=== PATIENT | male | born 1975 | race African-American/Black ===

== ENCOUNTER 2017-09-11 13:33 | Emergency (ER) | payer MEDICAID ==
--- NOTE | 2017-09-11 14:13 | EDM.PDOC ---
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, here with s.o., no current c/o - Related Data Allergies Allergy/AdvReac Type Severity Reaction Status Date / Time No Known Allergies Allergy Verified 09/11/17 15:17 Home Meds: Home Meds metFORMIN HCl [Metformin HCl] 500 mg PO DAILY #30 tablet 09/11/17 [Rx] ED ROS GENERAL - Review of Systems Review Of Systems: See Below Constitutional: Reports: No Symptoms HEENT: Reports: No Symptoms Respiratory: Reports: No Symptoms Cardiovascular: Reports: No Symptoms Endocrine: Reports: No Symptoms GI/Abdominal: Reports: No Symptoms : Reports: No Symptoms Musculoskeletal: Reports: No Symptoms Skin: Reports: No Symptoms Neurological: Reports: No Symptoms Psychiatric: Reports: No Symptoms Hematologic/Lymphatic: Reports: No Symptoms Immunologic: Reports: No Symptoms ED EXAM, GENERAL - Physical Exam Exam: See Below Exam Limited By: No Limitations General Appearance: Alert, WD/WN, No Apparent Distress, Other (alert, active, walking, texting on phone, nonill) Neck: Normal Inspection, Supple, Non-Tender, Full Range of Motion Respiratory/Chest: No Respiratory Distress, Lungs Clear, Normal Breath Sounds, No Accessory Muscle Use, Chest Non-Tender Cardiovascular: Regular Rate, Rhythm, No Edema, No Gallop, No Rub, Other (mild dec'd turgor UE, no tenting) GI/Abdominal: Soft, Non-Tender, No Distention, No Mass Back Exam: Normal Inspection, Full Range of Motion, NT Extremities: Normal Inspection, Normal Range of Motion, Non-Tender, No Pedal Edema Neurological: Alert, Oriented, CN II-XII Intact, Normal Cognition, No Motor/ Sensory Deficits Psychiatric: Normal Affect, Normal Mood Skin Exam: Warm, Dry, Intact, Normal Color, No Rash Lymphatic: No Adenopathy Course - Vital Signs Last Recorded V/S: Last Vital Signs Temp 36.5 C 09/11/17 15:09 Pulse 100 09/11/17 15:09 Resp 20 09/11/17 15:09 BP 130/93 H 09/11/17 15:09 Pulse Ox 100 09/11/17 15:09 - Orders/Labs/Meds Orders: Active Orders 24 hr Category Date Time Status Blood Glucose Check, Bedside [RC] ONETIME Care 09/11/17 14:08 Active Labs: Laboratory Tests 09/11/17 09/11/17 Range/Units 14:13 15:20 ABG pH 7.31 L (7.35-7.45) ABG pCO2 26 L (35-45) mmHg ABG pO2 106 (83-108) mmHg ABG HCO3 13 L (22-26) mmol/L ABG O2 Saturation 98 H (96-97) % ABG Base Excess -11.5 L (-2-2) Hasmukh Test Passed O2 Delivery Device Room air POC Glucose 312 H (80-116) mg/dL - Re-Assessments/Exams Free Text/Narrative Re-Assessment/Exam: 09/11/17 15:47 BS improved 312 in 24h based on diet alone, pH 7.31 which is more c/w mild dehydration than mild DKA, suspect DMII, will begin metformin 500 mg daily Departure - Departure Time of Disposition: 15:48 Disposition: Home, Self-Care 01 Condition: Good Clinical Impression: Hyperglycemia due to type 2 diabetes mellitus - Discharge Information Prescriptions: metFORMIN HCl [Metformin HCl] 500 mg PO DAILY #30 tablet Instructions: Type 2 Diabetes Mellitus, Adult, Diabetes Mellitus and Food Referrals: Alfredo Shelton MD [Primary Care Provider] - Forms: ED Department Discharge Additional Instructions: Take metformin 500 mg tab daily in the morning. Take one tab this afternoon and another tab in the morning. Eat a low carbohydrate diet. Your BMI is 29.7, ideal is [address] Shelton tomorrow. Return to ED if you are feeling worse. - My Orders Last 24 Hours: My Active Orders 09/11/17 14:08 Blood Glucose Check, Bedside [RC] ONETIME - Assessment/Plan Last 24 Hours: My Active Orders 09/11/17 14:08 Blood Glucose Check, Bedside [RC] ONETIME
== END 2017-09-11 16:05 | disposition home or self-care (01) ==
LOC: FB.ED 13:33 → EDSTATUS 13:33 → FB.ED 16:05
DX: E11.65 Type 2 diabetes mellitus with hyperglycemia (principal); Z79.84 Long term (current) use of oral hypoglycemic drugs
CPT/HCPCS: 36600; 82803; 82962; 99283

== ENCOUNTER 2017-09-17 11:48 | Emergency (ER) | payer MEDICAID ==
[2017-09-17] MEDS ORDERED: Sodium Chloride 0.9% 10 ML Syringe FLUSH PRN (11:51)
[2017-09-17] MEDS ORDERED: Sodium Chloride 0.9% 3,000 ML IV SCH (12:00)
--- NOTE | 2017-09-17 12:02 | EDM.PDOC ---
ED HPI GENERAL MEDICAL PROBLEM - General Chief Complaint: General Stated Complaint: DECAY Time Seen by Provider: 09/17/17 11:50 Source of Information: Reports: Family, Old Records History Limitations: Reports: Altered Mental Status - History of Present Illness INITIAL COMMENTS - FREE TEXT/NARRATIVE: Kurt returns to [facility] ED with elevated BS "to high to report" this am. He vomited his Metformin dose last pm. This morning, he is lethargic, confused, and combative. There have been symptoms of polyuria, polydipsia, and blurred vision. He saw an folder machine adjuster about 2 mos ago, and was prescribed glasses. He has not seen a PCP for over 5 years. He has a father and a sister diagnosed with DM recently. He was diagnosed with Type II DM last week, and has been taking Metformin 500 mg bid. He has not been checking BSs at home. - Related Data Allergies Allergy/AdvReac Type Severity Reaction Status Date / Time No Known Allergies Allergy Verified 09/11/17 15:17 Home Meds: Home Meds metFORMIN HCl [Metformin HCl] 500 mg PO DAILY #30 tablet 09/11/17 [Rx] Past Medical History - Past Health History Medical/Surgical History: Denies Medical/Surgical History Endocrine/Metabolic History: Reports: Diabetes, Type II - Infectious Disease History Infectious Disease History: Reports: Chicken Pox, Measles Social & Family History - Family History Family Medical History: Noncontributory - Tobacco Use Smoking Status *Q: Current Every Day Smoker Years of Tobacco use: 7 Packs/Tins Daily: 0.2 - Caffeine Use Caffeine Use: Reports: Coffee, Tea - Recreational Drug Use Recreational Drug Use: No ED ROS GENERAL - Review of Systems Review Of Systems: Unable To Obtain (confused at time of interview; carmine provided historical information) ED EXAM GENERAL NO PERIP PULSE - Physical Exam Exam: See Below Exam Limited By: Altered Mental Status General Appearance: Alert, WD/WN, Lethargic Eye Exam: Bilateral Eye: Normal Inspection, PERRL Ears: Normal External Exam Nose: Normal Inspection Throat/Mouth: Normal Inspection, Normal Lips, Normal Oropharynx, No Airway Compromise Head: Normocephalic Neck: Normal Inspection, Supple, Non-Tender, Full Range of Motion Respiratory/Chest: Lungs Clear, Normal Breath Sounds, No Accessory Muscle Use, Other (tachypnea) Cardiovascular: Normal Peripheral Pulses, No Murmur, Tachycardia GI/Abdominal: Normal Bowel Sounds, Soft, Non-Tender, No Organomegaly, No Distention, No Mass Back Exam: Normal Inspection Extremities: Normal Inspection Neurological: No Motor/Sensory Deficits, Confused, Disoriented Psychiatric: Flat Affect Skin Exam: Warm, Dry, Intact Lymphatic: No Adenopathy Course - Vital Signs Text/Narrative:: Following assessment at the [facility] ED, findings confirmed moderately severe DKA. Case was discussed with hospitalist who requested transfer to [facility] ICU in [place], [place]. Case was discussed with Dr Hughes who accepted patient. At time of transfer, Mr Calle was on the 4th and 5th L of NS, received reg Insulin 7 U IV bolus, and an Insulin Drip at .1U/kg/hr was hung. A george catheter was also in place. Last Recorded V/S: Last Vital Signs Temp 34.5 C L 09/17/17 13:27 Pulse 88 09/17/17 13:27 Resp 21 H 09/17/17 13:27 BP 120/66 09/17/17 13:27 Pulse Ox 100 09/17/17 13:27 - Orders/Labs/Meds Orders: Active Orders 24 hr Category Date Time Status Blood Glucose Check, Bedside [RC] BIDMEALS Care 09/17/17 13:27 Active Diabetes Education [RC] Click to Edit Care 09/17/17 13:27 Active Vital Signs [RC] Q1H Care 09/17/17 13:27 Active BASIC METABOLIC PANEL,BMP [CHEM] Q4H Lab 09/17/17 17:30 Ordered BASIC METABOLIC PANEL,BMP [CHEM] Q4H Lab 09/17/17 21:30 Ordered BASIC METABOLIC PANEL,BMP [CHEM] Q4H Lab 09/18/17 01:30 Ordered BASIC METABOLIC PANEL,BMP [CHEM] Q4H Lab 09/18/17 05:30 Ordered BASIC METABOLIC PANEL,BMP [CHEM] Q4H Lab 09/18/17 09:30 Ordered MAGNESIUM [CHEM] Q6H Lab 09/17/17 19:30 Ordered MAGNESIUM [CHEM] Q6H Lab 09/18/17 01:30 Ordered MAGNESIUM [CHEM] Q6H Lab 09/18/17 07:30 Ordered PHOSPHORUS [CHEM] Q6H Lab 09/17/17 19:30 Ordered PHOSPHORUS [CHEM] Q6H Lab 09/18/17 01:30 Ordered PHOSPHORUS [CHEM] Q6H Lab 09/18/17 07:30 Ordered POTASSIUM,K [CHEM] Q2H Lab 09/17/17 15:30 Ordered POTASSIUM,K [CHEM] Q2 Lab 09/17/17 19:30 Ordered POTASSIUM,K [CHEM] Q2 Lab 09/17/17 23:30 Ordered POTASSIUM,K [CHEM] Q2 Lab 09/18/17 01:30 Ordered POTASSIUM,K [CHEM] Q2H Lab 09/18/17 03:30 Ordered POTASSIUM,K [CHEM] Q2 Lab 09/18/17 05:30 Ordered POTASSIUM,K [CHEM] Q2H Lab 09/18/17 07:30 Ordered POTASSIUM,K [CHEM] Q2H Lab 09/18/17 09:30 Ordered POTASSIUM,K [CHEM] Q2 Lab 09/18/17 11:30 Ordered UA W/MICROSCOPIC [URIN] Stat Lab 09/17/17 11:51 Uncollected Insulin Regular, Human [HumuLIN R] 100 unit Med 09/17/17 13:45 Active Sodium Chloride 0.9% [Normal Saline] 99 ml IV TITRATE Sodium Chloride 0.9% [Normal Saline] 1,000 ml Med 09/17/17 13:59 Active IV .BOLUS Sodium Chloride 0.9% [Normal Saline] 1,000 ml Med 09/17/17 14:00 Active IV .BOLUS Sodium Chloride 0.9% [Normal Saline] 3,000 ml Med 09/17/17 12:00 Active IV ASDIRECTED Sodium Chloride 0.9% [Saline Flush] Med 09/17/17 11:51 Active 10 ml FLUSH ASDIRECTED PRN Peripheral IV Insertion Adult [OM.PC] Routine Oth 09/17/17 11:51 Ordered Medication Orders Sodium Chloride (Normal Saline) 3,000 mls @ 999 mls/hr IV ASDIRECTED BETZY Last Admin: 09/17/17 11:55 Dose: 999 mls/hr Insulin Human Regular 100 unit (/ Sodium Chloride) 100 mls @ 8.41 mls/hr IV TITRATE BETZY; 0.1 UNITS/KG/HR PRN Reason: Protocol Last Admin: 09/17/17 13:51 Dose: 0.1 units/kg/hr, 8.41 mls/hr Sodium Chloride (Normal Saline) 1,000 mls @ 999 mls/hr IV .BOLUS ONE Stop: 09/17/17 14:59 Last Admin: 09/17/17 14:02 Dose: 999 mls/hr Sodium Chloride (Normal Saline) 1,000 mls @ 999 mls/hr IV .BOLUS ONE Stop: 09/17/17 15:00 Last Admin: 09/17/17 14:02 Dose: 999 mls/hr Sodium Chloride (Saline Flush) 10 ml FLUSH ASDIRECTED PRN PRN Reason: Keep Vein Open Labs: Laboratory Tests 09/17/17 09/17/17 09/17/17 Range/Units 11:59 12:05 12:05 WBC 30.6 H* (4.5-12.0) X10-3/uL RBC 5.54 (4.30-5.75) x10(6)uL Hgb 15.8 H (11.5-15.5) g/dL Hct 48.6 (30.0-51.3) % MCV 87.8 (80-96) fL MCH 28.5 (27.7-33.6) pg MCHC 32.5 (32.2-35.4) g/dL RDW 11.6 (11.5-15.5) % Plt Count 216 (125-369) X10(3)uL MPV 10.2 (7.4-10.4) fL Add Manual Diff Yes Neutrophils % (Manual) 89 H (46-82) % Band Neutrophils % 3 (0-6) % Lymphocytes % (Manual) 4 L (13-37) % Monocytes % (Manual) 4 (4-12) % Toxic Granulation Few H (NOT SEEN) ABG pH (7.35-7.45) ABG pCO2 (35-45) mmHg ABG pO2 (83-108) mmHg ABG HCO3 (22-26) mmol/L ABG O2 Saturation (96-97) % ABG Base Excess (-2-2) Hasmukh Test O2 Delivery Device Sodium 116 L* (135-145) mmol/L Potassium 6.0 H (3.5-5.3) mmol/L Chloride 78 L* (100-110) mmol/L Carbon Dioxide 7 L* (21-32) mmol/L BUN 107 H* (7-18) mg/dL Creatinine 3.4 H* (0.70-1.30) mg/dL Est Cr Clr Drug Dosing TNP Estimated GFR (MDRD) 24 L (>60) BUN/Creatinine Ratio 31.5 H (9-20) Glucose 1879 H* (80-116) mg/dL POC Glucose > 500 H* D (80-116) mg/dL Calcium 9.3 (8.6-10.2) mg/dL Phosphorus (2.6-4.6) mg/dL Magnesium (1.8-2.5) mg/dL Total Bilirubin 0.6 (0.1-1.3) mg/dL AST 11 (5-25) IU/L ALT 22 (12-36) U/L Alkaline Phosphatase 90 (56-112) IU/L Total Protein 6.1 (6.0-8.0) g/dL Albumin 2.8 L (3.5-5.2) g/dL Globulin 3.3 g/dL Albumin/Globulin Ratio 0.9 09/17/17 09/17/17 09/17/17 Range/Units 12:20 13:39 13:55 WBC (4.5-12.0) X10-3/uL RBC (4.30-5.75) x10(6)uL Hgb (11.5-15.5) g/dL Hct (30.0-51.3) % MCV (80-96) fL MCH (27.7-33.6) pg MCHC (32.2-35.4) g/dL RDW (11.5-15.5) % Plt Count (125-369) X10(3)uL MPV (7.4-10.4) fL Add Manual Diff Neutrophils % (Manual) (46-82) % Band Neutrophils % (0-6) % Lymphocytes % (Manual) (13-37) % Monocytes % (Manual) (4-12) % Toxic Granulation (NOT SEEN) ABG pH 7.17 L* (7.35-7.45) ABG pCO2 13 L* (35-45) mmHg ABG pO2 156 H (83-108) mmHg ABG HCO3 5 L (22-26) mmol/L ABG O2 Saturation 99 H (96-97) % ABG Base Excess -24.2 L (-2-2) Hasmukh Test N/a O2 Delivery Device Nasal cannula Sodium 118 L* (135-145) mmol/L Potassium 5.7 H (3.5-5.3) mmol/L Chloride 80 L* (100-110) mmol/L Carbon Dioxide 8 L* (21-32) mmol/L BUN 103 H (7-18) mg/dL Creatinine 3.2 H* (0.70-1.30) mg/dL Est Cr Clr Drug Dosing TNP Estimated GFR (MDRD) 26 L (>60) BUN/Creatinine Ratio 32.2 H (9-20) Glucose 865 H* D (80-116) mg/dL POC Glucose > 500 H* (80-116) mg/dL Calcium 9.7 (8.6-10.2) mg/dL Phosphorus 7.7 H (2.6-4.6) mg/dL Magnesium 3.0 H* (1.8-2.5) mg/dL Total Bilirubin (0.1-1.3) mg/dL AST (5-25) IU/L ALT (12-36) U/L Alkaline Phosphatase (56-112) IU/L Total Protein (6.0-8.0) g/dL Albumin (3.5-5.2) g/dL Globulin g/dL Albumin/Globulin Ratio Meds: Medications Generic Name Dose Route Start Last Admin Trade Name Freq PRN Reason Stop Dose Admin Sodium Chloride 3,000 mls @ 999 mls/hr 09/17/17 12:00 09/17/17 11:55 Normal Saline IV 999 mls/hr ASDIRECTED BETZY Administration Insulin Human Regular 100 unit 100 mls @ 8.41 mls/hr 09/17/17 13:45 09/17/17 13:51 / Sodium Chloride IV 0.1 units/kg/hr TITRATE BETZY 8.41 mls/hr Protocol Administration 0.1 UNITS/KG/HR Sodium Chloride 1,000 mls @ 999 mls/hr 09/17/17 13:59 09/17/17 14:02 Normal Saline IV 09/17/17 14:59 999 mls/hr .BOLUS ONE Administration Sodium Chloride 1,000 mls @ 999 mls/hr 09/17/17 14:00 09/17/17 14:02 Normal Saline IV 09/17/17 15:00 999 mls/hr .BOLUS ONE Administration Sodium Chloride 10 ml 09/17/17 11:51 Saline Flush FLUSH ASDIRECTED PRN Keep Vein Open Discontinued Medications Generic Name Dose Route Start Last Admin Trade Name Berna PRN Reason Stop Dose Admin Sodium Chloride 1,000 mls @ 999 mls/hr 09/17/17 12:40 09/17/17 13:17 Normal Saline IV 09/17/17 13:40 999 mls/hr .BOLUS ONE Administration Sodium Chloride 1,000 mls @ 999 mls/hr 09/17/17 13:00 09/17/17 13:17 Normal Saline IV 09/17/17 14:00 999 mls/hr .BOLUS ONE Administration Insulin Human Regular 0 unit 09/17/17 13:27 09/17/17 13:42 Humulin R IV 09/17/17 13:28 7 units ONETIME ONE Administration Ondansetron HCl 4 mg 09/17/17 12:48 09/17/17 12:54 Zofran IVPUSH 09/17/17 12:49 4 mg ONETIME ONE Administration Departure - Departure Time of Disposition: 14:15 Disposition: DC/Tfer to Other 70 Condition: Poor Clinical Impression: Diabetic ketoacidosis Qualifiers: Diabetes mellitus type: type 2 Diabetes mellitus complication detail: without coma Qualified Code(s): E11.10 - Type 2 diabetes mellitus with ketoacidosis without coma - Discharge Information Referrals: Alfredo Shelton MD [Primary Care Provider] - Forms: ED Department Discharge - Problem List & Annotations (1) Diabetic ketoacidosis SNOMED Code(s): 529237760 Code(s): E13.10 - OTH DIABETES MELLITUS WITH KETOACIDOSIS WITHOUT COMA Status: Acute Current Visit: Yes Annotation/Comment:: Transfer to [place] ICU per request of hospitalist. Qualifiers: Diabetes mellitus type: type 2 Diabetes mellitus complication detail: without coma Qualified Code(s): E11.10 - Type 2 diabetes mellitus with ketoacidosis without coma - Problem List Review Problem List Initiated/Reviewed/Updated: Yes - My Orders Last 24 Hours: My Active Orders 09/17/17 11:51 UA W/MICROSCOPIC [URIN] Stat Sodium Chloride 0.9% [Saline Flush] 10 ml FLUSH ASDIRECTED PRN Peripheral IV Insertion Adult [OM.PC] Routine 09/17/17 12:00 Sodium Chloride 0.9% [Normal Saline] 3,000 ml IV ASDIRECTED 09/17/17 13:27 Blood Glucose Check, Bedside [RC] [facility] Diabetes Education [] Click to Edit Vital Signs [RC] Q1H 09/17/17 13:45 Insulin Regular, Human [HumuLIN R] 100 unit Sodium Chloride 0.9% [Normal Saline] 99 ml IV TITRATE 09/17/17 13:59 Sodium Chloride 0.9% [Normal Saline] 1,000 ml IV .BOLUS 09/17/17 14:00 Sodium Chloride 0.9% [Normal Saline] 1,000 ml IV .BOLUS 09/17/17 15:30 POTASSIUM,K [CHEM] Q2H 09/17/17 17:30 BASIC METABOLIC PANEL,BMP [CHEM] Q4H 09/17/17 19:30 MAGNESIUM [CHEM] Q6H PHOSPHORUS [CHEM] Q6H POTASSIUM,K [CHEM] Q2H 09/17/17 21:30 BASIC METABOLIC PANEL,BMP [CHEM] Q4H 09/17/17 23:30 POTASSIUM,K [CHEM] Q2H 09/18/17 01:30 BASIC METABOLIC PANEL,BMP [CHEM] Q4H MAGNESIUM [CHEM] Q6H PHOSPHORUS [CHEM] Q6H POTASSIUM,K [CHEM] Q2H 09/18/17 03:30 POTASSIUM,K [CHEM] Q2H 09/18/17 05:30 BASIC METABOLIC PANEL,BMP [CHEM] Q4H POTASSIUM,K [CHEM] Q2H 09/18/17 07:30 MAGNESIUM [CHEM] Q6H PHOSPHORUS [CHEM] Q6H POTASSIUM,K [CHEM] Q2H 09/18/17 09:30 BASIC METABOLIC PANEL,BMP [CHEM] Q4H POTASSIUM,K [CHEM] Q2H 09/18/17 11:30 POTASSIUM,K [CHEM] Q2H - Assessment/Plan Last 24 Hours: My Active Orders 09/17/17 11:51 UA W/MICROSCOPIC [URIN] Stat Sodium Chloride 0.9% [Saline Flush] 10 ml FLUSH ASDIRECTED PRN Peripheral IV Insertion Adult [OM.PC] Routine 09/17/17 12:00 Sodium Chloride 0.9% [Normal Saline] 3,000 ml IV ASDIRECTED 09/17/17 13:27 Blood Glucose Check, Bedside [RC] [email or web address] Diabetes Education [] Click to Edit Vital Signs [RC] Q1H 09/17/17 13:45 Insulin Regular, Human [HumuLIN R] 100 unit Sodium Chloride 0.9% [Normal Saline] 99 ml IV TITRATE 09/17/17 13:59 Sodium Chloride 0.9% [Normal Saline] 1,000 ml IV .BOLUS 09/17/17 14:00 Sodium Chloride 0.9% [Normal Saline] 1,000 ml IV .BOLUS 09/17/17 15:30 POTASSIUM,K [CHEM] Q2H 09/17/17 17:30 BASIC METABOLIC PANEL,BMP [CHEM] Q4H 09/17/17 19:30 MAGNESIUM [CHEM] Q6H PHOSPHORUS [CHEM] Q6H POTASSIUM,K [CHEM] Q2H 09/17/17 21:30 BASIC METABOLIC PANEL,BMP [CHEM] Q4H 09/17/17 23:30 POTASSIUM,K [CHEM] Q2H 09/18/17 01:30 BASIC METABOLIC PANEL,BMP [CHEM] Q4H MAGNESIUM [CHEM] Q6H PHOSPHORUS [CHEM] Q6H POTASSIUM,K [CHEM] Q2H 09/18/17 03:30 POTASSIUM,K [CHEM] Q2H 09/18/17 05:30 BASIC METABOLIC PANEL,BMP [CHEM] Q4H POTASSIUM,K [CHEM] Q2H 09/18/17 07:30 MAGNESIUM [CHEM] Q6H PHOSPHORUS [CHEM] Q6H POTASSIUM,K [CHEM] Q2H 09/18/17 09:30 BASIC METABOLIC PANEL,BMP [CHEM] Q4H POTASSIUM,K [CHEM] Q2H 09/18/17 11:30 POTASSIUM,K [CHEM] Q2H Plan: Per PCP upon return.
[2017-09-17] MEDS ORDERED: Sodium Chloride 0.9% 1,000 ML IV ONE ×4 (12:40→14:00)
[2017-09-17] MEDS ORDERED: Ondansetron 4 MG/2 ML SDV IVPUSH ONE (12:48)
[2017-09-17] MEDS ORDERED: Insulin Regular, Human 100 Units/ML 3 ML Vial IV ONE (13:27)
== END 2017-09-17 14:59 | disposition other institution (70) ==
LOC: FB.ED 11:48
DX: E11.10 Type 2 diabetes mellitus with ketoacidosis without coma (principal); F17.210 Nicotine dependence, cigarettes, uncomplicated; Z79.84 Long term (current) use of oral hypoglycemic drugs
CPT/HCPCS: 36415; 36600; 80048; 80053; 81001; 82803; 82962; 83735; 84100; 85025; 96361; 96365; 96375; 96376; 99285; J1815; J2405; J7030; J7040

== ENCOUNTER 2020-03-24 13:50 | Inpatient (IN) | payer BC, MEDICAID ==
[2020-03-24] MEDS ORDERED: Ondansetron 4 MG/2 ML SDV IVPUSH PRN (14:56)
[2020-03-24] MEDS ORDERED: Sodium Chloride 0.9% 10 ML Syringe FLUSH PRN (14:56)
[2020-03-24] MEDS: Dextrose 5%-Lact Ringers w/KCl 1,000 ML IV SCH (17:27)
--- NOTE | 2020-03-24 17:30 | PCM.HP.2 ---
H&P History of Present Illness - General Date of Service: 03/24/20 Admit Problem/Dx: Admission Diagnosis/Problem Admission Diagnosis/Problem Diabetic ketoacidosis without coma Source of Information: Patient, Provider - History of Present Illness Initial Comments - Free Text/Narative: Kurt is a 44 yr old male who was direct admission from the [facility] for DKA. He was seen on Sunday, had labs showed potassium 5.7, glucose >350, had IVF yesterday and return to clinic today for recheck. He has been having nausea, vomiting for past 3-4 days, felt better after IV fluids yesterday and has been able to keep medications down with sips of water but vomited up G2 Gatorade. He started noticing about 2 weeks ago that his sugars jumped up and tried to control with his diet but sugars stayed high. He has lost 37 pounds over 2 weeks. He states he was 220 and was 188 in clinic on Sunday and 183 when he arrived at hospital today. He was diagnosed with Diabetes 2 years ago when he was admitted to [facility] in [place] for DKA. His last Hgb A1c was 5.9 and when rechecked on Sunday was 11.5. He was changed from Metformin 500 mg bid to Janumet 5-500 mg bid on Sunday. - Related Data Allergies/Adverse Reactions: Allergies Allergy/AdvReac Type Severity Reaction Status Date / Time No Known Allergies Allergy Verified 09/17/17 17:25 Home Medications: Home Meds Aspirin [Halfprin] 81 mg PO DAILY 03/24/20 [History] atorvaSTATin Calcium [Atorvastatin Calcium] 20 mg PO DAILY 03/24/20 [History] ramipriL [Ramipril] 5 mg PO DAILY 03/24/20 [History] sitaGLIPtin Phos/Metformin HCl [Janumet 50-500 MG] 1 tab PO BID 03/24/20 [Hi story] Past Medical History - Past Health History Medical/Surgical History: Denies Medical/Surgical History HEENT History: Reports: None Cardiovascular History: Reports: None Respiratory History: Reports: Asthma Gastrointestinal History: Reports: None Genitourinary History: Reports: None Musculoskeletal History: Reports: None Neurological History: Reports: None Psychiatric History: Reports: Addiction, PTSD, Other (See Below) Other Psychiatric History: has had consuling Endocrine/Metabolic History: Reports: Diabetes, Type II Other Endocrine/Metabolic History: Dx 2018 Immunologic History: Reports: None Dermatologic History: Reports: None - Infectious Disease History Infectious Disease History: Reports: Chicken Pox - Past Surgical History HEENT Surgical History: Reports: Adenoidectomy, Tonsillectomy Cardiovascular Surgical History: Reports: None Respiratory Surgical History: Reports: None GI Surgical History: Reports: None Male Surgical History: Reports: None Endocrine Surgical History: Reports: None Neurological Surgical History: Reports: None Musculoskeletal Surgical History: Reports: None Dermatological Surgical History: Reports: None Social & Family History - Family History Family Medical History: Noncontributory Endocrine/Metabolic: Reports: Diabetes, type II - Tobacco Use Smoking Status *Q: Current Every Day Smoker Years of Tobacco use: 24 Packs/Tins Daily: 0.2 Used Tobacco, but Quit: No Second Hand Smoke Exposure: No - Caffeine Use Caffeine Use: Reports: Tea - Recreational Drug Use Recreational Drug Type: Reports: Marijuana/Hashish Recreational Drug Use Frequency: Rarely H&P Review of Systems - Review of Systems: Review Of Systems: See Below General: Reports: Weakness, Decreased Appetite, Weight Loss. Denies: Fever, Chills HEENT: Reports: No Symptoms Pulmonary: Reports: No Symptoms Cardiovascular: Reports: No Symptoms Gastrointestinal: Reports: Decreased Appetite, Nausea, Vomiting. Denies: Abdominal Pain, Constipation, Diarrhea, Difficulty Swallowing Genitourinary: Reports: No Symptoms Musculoskeletal: Reports: Muscle Pain (cramps in legs yesterday) Skin: Reports: No Symptoms Psychiatric: Reports: No Symptoms Neurological: Reports: No Symptoms Hematologic/Lymphatic: Reports: No Symptoms Immunologic: Reports: No Symptoms Exam - Exam Exam: See Below - Vital Signs Vital Signs: Last Vital Signs Temp 97.5 F 03/24/20 14:13 Pulse 92 03/24/20 14:13 Resp 18 03/24/20 14:13 BP 133/92 H 03/24/20 14:13 Pulse Ox 98 03/24/20 14:13 Weight: 183 lb 14.4 oz - Exam General: Alert, Oriented, Cooperative. No: Mild Distress HEENT: PERRLA, Conjunctiva Clear, EOMI, Hearing Intact, Nares Patent, Normal Nasal Septum, Posterior Pharynx Clear, Other (Mucosa: Dry & tacky) Neck: Supple, Trachea Midline. No: Lymphadenopathy Lungs: Clear to Auscultation, Normal Respiratory Effort Cardiovascular: Regular Rate, Regular Rhythm. No: Systolic Murmur, Diastolic Murmur GI/Abdominal Exam: Soft, No Distention, Guarding, Tender (epigastric), Abnormal Bowel Sounds (hypoactive). No: Rigid, Rebound (Male) Exam: Deferred Rectal (Males) Exam: Deferred Back Exam: No: CVA Tenderness (R), CVA Tenderness (L) Extremities: No Pedal Edema, Leg Pain (Right thigh). No: Increased Warmth, Mottled, Pallor, Redness Peripheral Pulses: 2+: Radial (L), Radial (R), Posterior Tibial (L), Posterior Tibial (R), Dorsalis Pedis (L), Dorsalis Pedis (R) Skin: Warm, Dry, Intact, Cool (feet) Neurological: Cranial Nerves Intact, Normal Speech, Normal Tone - Patient Data Lab Results Last 24 hrs: Laboratory Results - last 24 hr 03/24/20 03/24/20 03/24/20 Range/Units 15:15 15:15 15:15 WBC 9.3 (4.5-12.0) X10-3/uL RBC 5.58 (4.30-5.75) x10(6)uL Hgb 15.5 (13.5-17.8) g/dL Hct 48.7 (30.0-51.3) % MCV 87.2 (80-96) fL MCH 27.8 (27.7-33.6) pg MCHC 31.9 L (32.2-35.4) g/dL RDW 11.6 (11.5-15.5) % Plt Count 302 (125-369) X10(3)uL MPV 8.6 (7.4-10.4) fL Neut % (Auto) 69.5 (46-82) % Lymph % (Auto) 21.1 (13-37) % [place] % (Auto) 7.8 (4-12) % Eos % (Auto) 1 (1.0-5.0) % Baso % (Auto) 1 (0-2) % Neut # (Auto) 6.5 (1.6-8.3) # Lymph # (Auto) 2.0 (0.6-5.0) # [place] # (Auto) 0.7 (0.0-1.3) # Eos # (Auto) 0.0 (0.0-0.8) # Baso # (Auto) 0.1 (0.0-0.2) # Sodium 128 L D (135-145) mmol/L Potassium 4.5 D (3.5-5.3) mmol/L Chloride 94 L D (100-110) mmol/L Carbon Dioxide 12 L (21-32) mmol/L BUN 21 H D (7-18) mg/dL Creatinine 1.4 H (0.70-1.30) mg/dL Est Cr Clr Drug Dosing 67.33 mL/min Estimated GFR (MDRD) > 60 (>60) BUN/Creatinine Ratio 15.0 (9-20) Glucose 315 H D (80-116) mg/dL Calcium 10.6 H (8.6-10.2) mg/dL Magnesium 2.2 (1.8-2.5) mg/dL Total Bilirubin 0.9 (0.1-1.3) mg/dL AST 11 (5-25) IU/L ALT 22 (12-36) U/L Alkaline Phosphatase 106 (56-112) IU/L Total Protein 8.2 H (6.0-8.0) g/dL Albumin 4.2 (3.5-5.2) g/dL Globulin 4.0 g/dL Albumin/Globulin Ratio 1.1 Result Diagrams: 03/24/20 15:15 03/24/20 15:15 Sepsis Event Note - Evaluation Sepsis Screening Result: No Definite Risk - Focused Exam Vital Signs: Vital Signs Temp Pulse Resp BP Pulse Ox 03/24/20 14:13 97.5 F 92 18 133/92 H 98 Date Exam was Performed: 03/24/20 Time Exam was Performed: 17:23 *Q Meaningful Use (ADM) - VTE Risk Assess *Q Each Risk Factor Represents 1 Point: Age 41 - 59 years Total Score 1 Point Risk Factors: 1 - Problem List (1) Diabetic ketoacidosis SNOMED Code(s): 190923113, 946841427 ICD Code: E13.10 - OTH DIABETES MELLITUS WITH KETOACIDOSIS WITHOUT COMA Status: Acute Current Visit: No Problem Details: Transfer to [facility] per request of hospitalist. Qualifiers: Diabetes mellitus type: type 2 Diabetes mellitus complication detail: without coma Qualified Code(s): E11.10 - Type 2 diabetes mellitus with ketoacidosis without coma (2) Nausea & vomiting SNOMED Code(s): 09372429 ICD Code: R11.2 - NAUSEA WITH VOMITING, UNSPECIFIED Status: Acute Current Visit: Yes (3) LARISA (acute kidney injury) SNOMED Code(s): 17151784, 10725909 ICD Code: N17.9 - ACUTE KIDNEY FAILURE, UNSPECIFIED Status: Acute Current Visit: Yes (4) Dehydration SNOMED Code(s): 86131320 ICD Code: E86.0 - DEHYDRATION Status: Acute Current Visit: Yes (5) Muscle cramps SNOMED Code(s): 84224398 ICD Code: R25.2 - CRAMP AND SPASM Status: Acute Current Visit: Yes (6) Hyperglycemia due to type 2 diabetes mellitus SNOMED Code(s): 689216286953984, 860401972206578 ICD Code: E11.65 - TYPE 2 DIABETES MELLITUS WITH HYPERGLYCEMIA Status: Chronic Current Visit: No Qualifiers: Diabetes mellitus moth exterminator insulin use: without senior living use Qualified Code(s): E11.65 - Type 2 diabetes mellitus with hyperglycemia Problem List Initiated/Reviewed/Updated: Yes Orders Last 24hrs: Active Orders 24 hr Category Date Time Status Patient Status [ADT] Routine ADT 03/24/20 14:57 Active Antiembolic Devices [RC] .Routine Care 03/24/20 14:56 Active Blood Glucose Check, Bedside [RC] QIDACANDBED Care 03/24/20 14:56 Active Intake and Output [RC] QSHIFT Care 03/24/20 14:58 Active Oxygen Therapy [RC] PRN Care 03/24/20 14:57 Active Up ad Yulisa [RC] ASDIRECTED Care 03/24/20 14:56 Active VTE/DVT Education [RC] Per Unit Routine Care 03/24/20 14:57 Active Vital Signs [RC] Q4H Care 03/24/20 14:57 Active Clear Liquid Diet [DIET] Diet 03/24/20 Dinner Active BASIC METABOLIC PANEL,BMP [CHEM] Routine Lab 03/24/20 22:00 Ordered BASIC METABOLIC PANEL,BMP [CHEM] Routine Lab 03/25/20 04:00 Ordered UA W/MICROSCOPIC [URIN] Routine Lab 03/24/20 16:50 Received Dextrose 5%-Lact Ringers w/KCl [D5 LR with 20 mEq KCl] Med 03/24/20 16:15 Active 1,000 ml IV Q8H Insulin Lispro [HumaLOG] Med 03/24/20 16:13 Active See Protocol SUBCUT QIDACANDBED PRN Ondansetron [Zofran] Med 03/24/20 14:56 Active 4 mg IVPUSH Q4H PRN Sodium Chloride 0.9% [Saline Flush] Med 03/24/20 14:56 Active 10 ml FLUSH ASDIRECTED PRN Antiembolic Hose [OM.PC] Per Unit Routine Oth 03/24/20 14:59 Ordered Peripheral IV Insertion Adult [OM.PC] Routine Oth 03/24/20 14:56 Ordered Resuscitation Status Routine Resus Stat 03/24/20 14:56 Ordered Medication Orders Potassium Cl/Dextrose/Lact Ringer's (D5 Lr With 20 Meq Kcl) 1,000 mls @ 125 mls/hr IV Q8H BETZY Insulin Human Lispro (Humalog) 0 unit SUBCUT QIDACANDBED PRN; Protocol PRN Reason: Blood Glucose Ondansetron HCl (Zofran) 4 mg IVPUSH Q4H PRN PRN Reason: Nausea/Vomiting Sodium Chloride (Saline Flush) 10 ml FLUSH ASDIRECTED PRN PRN Reason: Keep Vein Open Last Admin: 03/24/20 14:50 Dose: 10 ml Documented by: ASCHPEG Assessment/Plan Comment:: 1. Admit for DKA, dehydration, LARISA, nausea & vomiting. 2. D5LR with potassium 20mEq at 125 ml/hr, Humalog medium dose sliding scale, qid & ac accuchecks. Repeat BMP at 2200 and 0400. 3. Clear liquid diet. 4. Zofran 4 mg IV q4h as needed nausea. 5. DVT prophylaxis: TEDs, ambulation. 6. FULL CODE. - Mortality Measure Prognosis:: Good
[2020-03-24] MEDS ORDERED: Insulin Lispro 100 Unit/ML 3 ML KwikPen SUBCUT ONE (18:27)
[2020-03-24] MEDS: Insulin Lispro 100 Unit/ML 3 ML KwikPen SUBCUT PRN ×2 (18:36→20:58)
[2020-03-25] MEDS: Dextrose 5%-Lact Ringers w/KCl 1,000 ML IV SCH ×2 (02:09→09:28)
[2020-03-25] MEDS: Insulin Lispro 100 Unit/ML 3 ML KwikPen SUBCUT PRN ×5 (06:59→21:46)
[2020-03-25] MEDS: Aspirin 81 MG Tab.EC PO SCH (09:30)
[2020-03-25] MEDS: atorvaSTATin 20 MG Tab PO SCH (09:30)
--- NOTE | 2020-03-25 17:28 | PCM.PN ---
- General Info Date of Service: 03/25/20 Admission Dx/Problem (Free Text): Kurt is feeling better this morning, tolerated clear liquids this morning, still hungry, would like to try advancing diet. had bowel movement this morning. No emesis. Anion gap closing overnight, corrected this morning. Blood sugars 300-400s. Functional Status: Reports: Tolerating Diet, Ambulating, Urinating - Patient Data Vitals - Most Recent: Last Vital Signs Temp 96.7 F L 03/25/20 14:20 Pulse 116 H 03/25/20 14:20 Resp 22 H 03/25/20 14:20 BP 140/87 03/25/20 14:20 Pulse Ox 100 03/25/20 14:20 Weight - Most Recent: 190 lb 2 oz I&O - Last 24 Hours: Intake & Output 03/25/20 03/25/20 03/25/20 06:59 14:59 22:59 Intake Total 2156 2260 Output Total 700 Balance 2156 1560 Lab Results Last 24 Hours: Laboratory Results - last 24 hr 03/24/20 03/24/20 03/24/20 Range/Units 16:50 17:46 20:43 Sodium (135-145) mmol/L Potassium (3.5-5.3) mmol/L Chloride (100-110) mmol/L Carbon Dioxide (21-32) mmol/L BUN (7-18) mg/dL Creatinine (0.70-1.30) mg/dL Est Cr Clr Drug Dosing mL/min Estimated GFR (MDRD) (>60) BUN/Creatinine Ratio (9-20) Glucose (80-116) mg/dL POC Glucose 360 H D 347 H (80-116) mg/dL Calcium (8.6-10.2) mg/dL Urine Color Yellow (YELLOW) Urine Appearance Clear (CLEAR) Urine pH 5.0 (5.0-6.5) Ur Specific [place] 1.025 (1.010-1.025) Urine Protein Trace (NEGATIVE) mg/dL Urine Glucose (UA) >1000 H (NORMAL) mg/dL Urine Ketones 150 H (NEGATIVE) mg/dL Urine Occult Blood Moderate H (NEGATIVE) Urine Nitrite Negative (NEGATIVE) Urine Bilirubin Negative (NEGATIVE) Urine Urobilinogen Normal (NEGATIVE) mg/dL Ur Leukocyte Esterase Negative (NEGATIVE) Urine RBC 0-5 (0-5) Urine WBC 0-5 (0-5) Ur Squamous Epith Cells Occasional (NS,R,O) Urine Bacteria Rare H (NS) 03/24/20 03/25/20 03/25/20 Range/Units 22:05 05:50 09:00 Sodium 129 L 131 L 128 L (135-145) mmol/L Potassium 4.2 4.0 4.1 (3.5-5.3) mmol/L Chloride 97 L 98 L 96 L (100-110) mmol/L Carbon Dioxide 20 L 19 L 22 (21-32) mmol/L BUN 18 15 13 (7-18) mg/dL Creatinine 1.3 1.1 1.2 (0.70-1.30) mg/dL Est Cr Clr Drug Dosing 72.51 85.70 78.56 mL/min Estimated GFR (MDRD) > 60 > 60 > 60 (>60) BUN/Creatinine Ratio 13.8 13.6 10.8 (9-20) Glucose 305 H 337 H 432 H* D (80-116) mg/dL POC Glucose (80-116) mg/dL Calcium 10.3 H 10.3 H 9.9 (8.6-10.2) mg/dL Urine Color (YELLOW) Urine Appearance (CLEAR) Urine pH (5.0-6.5) Ur Specific [place] (1.010-1.025) Urine Protein (NEGATIVE) mg/dL Urine Glucose (UA) (NORMAL) mg/dL Urine Ketones (NEGATIVE) mg/dL Urine Occult Blood (NEGATIVE) Urine Nitrite (NEGATIVE) Urine Bilirubin (NEGATIVE) Urine Urobilinogen (NEGATIVE) mg/dL Ur Leukocyte Esterase (NEGATIVE) Urine RBC (0-5) Urine WBC (0-5) Ur Squamous Epith Cells (NS,R,O) Urine Bacteria (NS) 03/25/20 03/25/20 Range/Units 10:50 15:10 Sodium 130 L (135-145) mmol/L Potassium 4.1 (3.5-5.3) mmol/L Chloride 95 L (100-110) mmol/L Carbon Dioxide 23 (21-32) mmol/L BUN 15 (7-18) mg/dL Creatinine 1.1 (0.70-1.30) mg/dL Est Cr Clr Drug Dosing 85.70 mL/min Estimated GFR (MDRD) > 60 (>60) BUN/Creatinine Ratio 13.6 (9-20) Glucose 379 H (80-116) mg/dL POC Glucose 308 H (80-116) mg/dL Calcium 10.0 (8.6-10.2) mg/dL Urine Color (YELLOW) Urine Appearance (CLEAR) Urine pH (5.0-6.5) Ur Specific [place] (1.010-1.025) Urine Protein (NEGATIVE) mg/dL Urine Glucose (UA) (NORMAL) mg/dL Urine Ketones (NEGATIVE) mg/dL Urine Occult Blood (NEGATIVE) Urine Nitrite (NEGATIVE) Urine Bilirubin (NEGATIVE) Urine Urobilinogen (NEGATIVE) mg/dL Ur Leukocyte Esterase (NEGATIVE) Urine RBC (0-5) Urine WBC (0-5) Ur Squamous Epith Cells (NS,R,O) Urine Bacteria (NS) Med Orders - Current: Current Medications Aspirin (Halfprin) 81 mg PO DAILY [facility] Last Admin: 03/25/20 09:30 Dose: 81 mg Documented by: Atorvastatin Calcium (Lipitor) 20 mg PO DAILY [facility] Last Admin: 03/25/20 09:30 Dose: 20 mg Documented by: Lactated Ringer's (Ringers, Lactated) 1,000 mls @ 75 mls/hr IV ASDIRECTED [facility] Insulin Human Lispro (Humalog) 0 unit SUBCUT QIDACANDBED PRN; Protocol PRN Reason: Blood Glucose Last Admin: 03/25/20 14:42 Dose: 8 units Documented by: Ondansetron HCl (Zofran) 4 mg IVPUSH Q4H PRN PRN Reason: Nausea/Vomiting Potassium Chloride (Klor-Con M20) 20 meq PO TID [facility] Stop: 03/26/20 21:01 Ramipril (Altace) 5 mg PO DAILY [facility] Last Admin: 03/25/20 09:30 Dose: 5 mg Documented by: Sodium Chloride (Saline Flush) 10 ml FLUSH ASDIRECTED PRN PRN Reason: Keep Vein Open Last Admin: 03/24/20 14:50 Dose: 10 ml Documented by: Discontinued Medications Potassium Cl/Dextrose/Lact Ringer's (D5 Lr With 20 Meq Kcl) 1,000 mls @ 125 mls/hr IV Q8H [facility] Last Admin: 03/25/20 09:28 Dose: Not Given Documented by: Potassium Chloride 20 meq/ (Lactated Ringer's) 1,010 mls @ 125 mls/hr IV Q8H [facility] Last Admin: 03/25/20 09:28 Dose: 125 mls/hr Documented by: - Exam General: Alert, Oriented, Cooperative, No Acute Distress Lungs: Clear to Auscultation, Normal Respiratory Effort Cardiovascular: Regular Rate, Regular Rhythm GI/Abdominal Exam: Normal Bowel Sounds, Soft, Non-Tender, No Distention Extremities: No Pedal Edema Peripheral Pulses: 2+: Radial (L), Radial (R) Sepsis Event Note - Evaluation Sepsis Screening Result: No Definite Risk - Focused Exam Vital Signs: Vital Signs Temp Pulse Resp BP BP Pulse Ox 03/25/20 14:20 96.7 F L 116 H 22 H 140/87 100 03/25/20 09:30 124/80 03/25/20 07:10 98.4 F 102 H 18 124/80 100 Date Exam was Performed: 03/25/20 Time Exam was Performed: 17:23 - Problem List & Annotations (1) Diabetic ketoacidosis SNOMED Code(s): 816143949, 990227140 Code(s): E13.10 - OTH DIABETES MELLITUS WITH KETOACIDOSIS WITHOUT COMA Status: Resolved Current Visit: No Qualifiers: Diabetes mellitus type: type 2 Diabetes mellitus complication detail: without coma Qualified Code(s): E11.10 - Type 2 diabetes mellitus with ketoacidosis without coma Annotation/Comment:: Resolved, anion gap closed now. (2) Nausea & vomiting SNOMED Code(s): 99977961 Code(s): R11.2 - NAUSEA WITH VOMITING, UNSPECIFIED Status: Resolved Current Visit: Yes (3) LARISA (acute kidney injury) SNOMED Code(s): 25610747, 12769977 Code(s): N17.9 - ACUTE KIDNEY FAILURE, UNSPECIFIED Status: Resolved Current Visit: Yes (4) Dehydration SNOMED Code(s): 91455272 Code(s): E86.0 - DEHYDRATION Status: Acute Current Visit: Yes Annotation/Comment:: Resolving. (5) Muscle cramps SNOMED Code(s): 60749725 Code(s): R25.2 - CRAMP AND SPASM Status: Resolved Current Visit: Yes (6) Hyperglycemia due to type 2 diabetes mellitus SNOMED Code(s): 767549241252316, 308596682387837 Code(s): E11.65 - TYPE 2 DIABETES MELLITUS WITH HYPERGLYCEMIA Status: Chronic Current Visit: No Qualifiers: Diabetes mellitus skilled nursing insulin use: without skilled nursing use Qualified Code(s): E11.65 - Type 2 diabetes mellitus with hyperglycemia - Problem List Review Problem List Initiated/Reviewed/Updated: Yes - My Orders Last 24 Hours: My Active Orders 03/25/20 09:00 Aspirin [Halfprin] 81 mg PO DAILY atorvaSTATin [Lipitor] 20 mg PO DAILY ramipriL [Altace] 5 mg PO DAILY 03/25/20 Lunch Consistent Carbohydrate Diet [DIET] 03/25/20 15:45 Lactated Ringers [Ringers, Lactated] 1,000 ml IV ASDIRECTED 03/25/20 21:00 Potassium Chloride [Klor-Con M20] 20 meq PO TID 03/26/20 05:00 BASIC METABOLIC PANEL,BMP [CHEM] Routine - Plan Plan:: 1. Repeat BMP tomorrow am. 2. Humalog High dose sliding scale, qid & ac accuchecks. 3. Diabetic soft diet. 4. Zofran 4 mg IV q4h as needed nausea. 5. DVT prophylaxis: TEDs, ambulation. Advance diet as tolerated. Continues to improve, anticipate discharge tomorrow.
[2020-03-25] MEDS: Lactated Ringers 1,000 ML IV SCH (18:19)
[2020-03-25] MEDS: Potassium Chloride 20 MEQ Tab.ER PO SCH (21:47)
[2020-03-26] MEDS: Insulin Lispro 100 Unit/ML 3 ML KwikPen SUBCUT PRN ×2 (07:35→12:44)
[2020-03-26] MEDS: Lactated Ringers 1,000 ML IV SCH (07:36)
[2020-03-26] MEDS: Potassium Chloride 20 MEQ Tab.ER PO SCH (08:15)
[2020-03-26] MEDS: Aspirin 81 MG Tab.EC PO SCH (08:16)
[2020-03-26] MEDS: atorvaSTATin 20 MG Tab PO SCH (08:17)
--- NOTE | 2020-03-26 19:38 | DISCH ---
DISCHARGE DATE: 03/26/2020 DISCHARGE DIAGNOSIS: Complicated hyperglycemia with an accompanying hyponatremia. HISTORY OF PRESENT ILLNESS: Kurt Calle is a 44-year-old Afro- [place] male, admitted on 03/24/2020 with complicated hyperglycemia. Had a decline in general well-being. History of well controlled diabetes dating back to fall. Over the last several weeks duration increasing sense of reduced well-being. Fatigue, tired, excessive urination, significant weight loss, and marked decline in diabetes function with A1c greater than 11. Previously had elevated potassium of 5.7. Intravenous fluids given as an outpatient. We reinstituted as an inpatient. He was given sliding scale insulin, with improvement in sugars. Hydration improved, weight went up appropriately. Please see Dr. Colon's admission history and physical. Doing well at the time of discharge. Spoke about insulin, either mixed insulin 70/30 Humalog, premeal rapid-acting insulin and basal insulin, and consideration to continue his Janumet in the mean time. The patient elected for that purpose. Discharged home on medications as appropriate, good fluids, staying hydrated. Accu-Cheks to be done 4 times a day. We will follow up with Dr. Shelton first part of next week. Sugars greater than 400. He will contact us accordingly. Visit with certified diabetes educator, dietitian under consideration. Insulin still a strong likelihood of need. /[id number] MAITE/SABINE
== END 2020-03-26 13:00 | disposition home or self-care (01) | DRG 420 ==
LOC: FB.MS 13:50
PROVIDERS: ADMIT Family Medicine; ATTEND Family Medicine
DX: E11.10 Type 2 diabetes mellitus with ketoacidosis without coma (principal); E11.65 Type 2 diabetes mellitus with hyperglycemia; E87.1 Hypo-osmolality and hyponatremia; Z79.82 Long term (current) use of aspirin; Z79.899 Other long term (current) drug therapy; J45.909 Unspecified asthma, uncomplicated; F43.10 Post-traumatic stress disorder, unspecified; Z90.89 Acquired absence of other organs; F17.210 Nicotine dependence, cigarettes, uncomplicated; N17.9 Acute kidney failure, unspecified; E86.0 Dehydration
CPT/HCPCS: 36415; 80048; 80053; 81001; 82962; 83735; 85025; A9270-GY; J1815; J3480; J7120

== ENCOUNTER 2020-05-26 13:10 | Emergency (ER) | payer OTHER, BC, MEDICAID ==
[2020-05-26] MEDS ORDERED: HYDROmorphone 2 MG/ML SDV IVPUSH ONE (13:30)
[2020-05-26] MEDS ORDERED: Piperacillin/Tazobactam 4.5 GM in Sodium Chloride 0.9% 100 ML IV STA (13:38)
[2020-05-26] MEDS ORDERED: Diphtheria,Pertussis(Acell),Tetanus Vaccine 0.5 ML SDV IM ONE (13:47)
--- NOTE | 2020-05-26 13:55 | EDM.PDOC ---
ED HPI GENERAL MEDICAL PROBLEM - General Chief Complaint: Bite:Animal, Insect Stated Complaint: DOG ATTACK Time Seen by Provider: 05/26/20 13:20 Source of Information: Reports: Patient History Limitations: Reports: No Limitations - History of Present Illness INITIAL COMMENTS - FREE TEXT/NARRATIVE: Patient presented to the ED because of a dog bite on the left upper/lower lip. He has a significant tear of the lip. Pain is 10/10. The dog is owned by his friend and is apparently up to date with the rabies vaccine. Lip Pain Score (Numeric/FACES): 9 - Related Data Allergies Allergy/AdvReac Type Severity Reaction Status Date / Time No Known Allergies Allergy Verified 09/17/17 17:25 Home Meds: Home Meds Aspirin [Halfprin] 81 mg PO DAILY 03/24/20 [History] atorvaSTATin Calcium [Atorvastatin Calcium] 20 mg PO DAILY 03/24/20 [History] ramipriL [Ramipril] 5 mg PO DAILY 03/24/20 [History] sitaGLIPtin Phos/Metformin HCl [Janumet 50-500 MG] 1 tab PO BID 03/24/20 [History] Past Medical History - Past Health History Medical/Surgical History: Denies Medical/Surgical History HEENT History: Reports: None Cardiovascular History: Reports: None Respiratory History: Reports: Asthma Gastrointestinal History: Reports: None Genitourinary History: Reports: None Musculoskeletal History: Reports: None Neurological History: Reports: None Psychiatric History: Reports: Addiction, PTSD, Other (See Below) Other Psychiatric History: has had consuling Endocrine/Metabolic History: Reports: Diabetes, Type II Other Endocrine/Metabolic History: Dx 2018 Immunologic History: Reports: None Dermatologic History: Reports: None - Infectious Disease History Infectious Disease History: Reports: Chicken Pox - Past Surgical History HEENT Surgical History: Reports: Adenoidectomy, Tonsillectomy Cardiovascular Surgical History: Reports: None Respiratory Surgical History: Reports: None GI Surgical History: Reports: None Male Surgical History: Reports: None Endocrine Surgical History: Reports: None Neurological Surgical History: Reports: None Musculoskeletal Surgical History: Reports: None Dermatological Surgical History: Reports: None Social & Family History - Family History Family Medical History: Noncontributory Endocrine/Metabolic: Reports: Diabetes, type II - Tobacco Use Smoking Status *Q: Current Every Day Smoker Years of Tobacco use: 10 Packs/Tins Daily: 0.1 - Caffeine Use Caffeine Use: Reports: Coffee - Recreational Drug Use Recreational Drug Use: No ED ROS GENERAL - Review of Systems Review Of Systems: See Below Constitutional: Reports: No Symptoms HEENT: Reports: Other (left upper and lower lip tear) Respiratory: Reports: No Symptoms Cardiovascular: Reports: No Symptoms Endocrine: Reports: No Symptoms GI/Abdominal: Reports: No Symptoms Musculoskeletal: Reports: No Symptoms Skin: Reports: No Symptoms Neurological: Reports: No Symptoms ED EXAM, ANIMAL BITE - Physical Exam Exam: See Below Exam Limited By: Intoxication General Appearance: Alert, No Apparent Distress Ears: Normal External Exam Nose: Normal Inspection, Normal Mucosa Throat/Mouth: Normal Inspection, Other (compound tear of the upper and lower lip) Neck: Normal Inspection Respiratory/Chest: No Respiratory Distress, Lungs Clear, Normal Breath Sounds Cardiovascular: Normal Peripheral Pulses, Regular Rate, Rhythm GI/Abdominal: Normal Bowel Sounds, Soft, Non-Tender Back Exam: Normal Inspection, Full Range of Motion Extremities: Normal Inspection, Normal Range of Motion, Non-Tender Neurological: Alert, Oriented, CN II-XII Intact, Normal Cognition, Normal Gait Psychiatric: Normal Affect, Normal Mood Course - Vital Signs Text/Narrative:: labs-pending Viscous lidocaine applied to the wound Tdap Zoasyn 4.5 GM IV Dilaudid 2 mg IV x1 Last Recorded V/S: Last Vital Signs Temp 36.6 C 05/26/20 13:20 Pulse 77 05/26/20 13:20 Resp 18 05/26/20 13:20 BP 101/65 05/26/20 13:20 Pulse Ox 98 05/26/20 13:20 - Orders/Labs/Meds Orders: Active Orders 24 hr Category Date Time Status Vaccines to be Administered [RC] PER UNIT ROUTINE Care 05/26/20 13:47 Ordered CBC WITH AUTO DIFF [HEME] Stat Lab 05/26/20 13:25 Ordered COMPREHENSIVE METABOLIC PN,CMP [CHEM] Stat Lab 05/26/20 13:25 Ordered INR,PT,PROTHROMBIN TIME [COAG] Stat Lab 05/26/20 13:25 Ordered PTT,PARTIAL THROMBOPLSTIN TIME [COAG] Stat Lab 05/26/20 13:25 Ordered Piperacillin/Tazobactam [Zosyn] 4.5 gm Med 05/26/20 13:38 Ordered Sodium Chloride 0.9% [Normal Saline] 100 ml IV NOW Medication Orders Piperacillin Sod/Tazobactam (Sod 4.5 gm/ Sodium Chloride) 100 mls @ 200 mls/hr IV NOW STA Stop: 05/26/20 14:07 Last Admin: 05/26/20 13:47 Dose: 200 mls/hr Documented by: KAYLEIGH Meds: Medications Generic Name Dose Route Start Last Admin Trade Name Freq PRN Reason Stop Dose Admin Piperacillin Sod/Tazobactam 100 mls @ 200 mls/hr 05/26/20 13:38 05/26/20 13:47 Sod 4.5 gm/ Sodium Chloride IV 05/26/20 14:07 200 mls/hr NOW STA Administration Discontinued Medications Generic Name Dose Route Start Last Admin Trade Name Freq PRN Reason Stop Dose Admin Diphtheria/Tetanus/Acell Pertussis 0.5 ml 05/26/20 13:47 Adacel IM 05/26/20 13:48 .ONCE ONE Hydromorphone HCl 2 mg 05/26/20 13:30 05/26/20 13:36 Dilaudid IVPUSH 05/26/20 13:31 2 mg ONETIME ONE Administration Departure - Departure Time of Disposition: 13:55 Disposition: DC/Tfer to Acute Hospital 02 Condition: Good Clinical Impression: Dog bite, Laceration - Discharge Information Referrals: Alfredo Shelton MD [Primary Care Provider] - Sepsis Event Note (ED) - Evaluation Sepsis Screening Result: No Definite Risk - Focused Exam Vital Signs: Vital Signs Temp Pulse Resp BP Pulse Ox 05/26/20 13:20 36.6 C 77 18 101/65 98 - My Orders Last 24 Hours: My Active Orders 05/26/20 13:25 CBC WITH AUTO DIFF [HEME] Stat COMPREHENSIVE METABOLIC PN,CMP [CHEM] Stat INR,PT,PROTHROMBIN TIME [COAG] Stat PTT,PARTIAL THROMBOPLSTIN TIME [COAG] Stat 05/26/20 13:38 Piperacillin/Tazobactam [Zosyn] 4.5 gm Sodium Chloride 0.9% [Normal Saline] 100 ml IV NOW 05/26/20 13:47 Vaccines to be Administered [RC] PER UNIT ROUTINE - Assessment/Plan Last 24 Hours: My Active Orders 05/26/20 13:25 CBC WITH AUTO DIFF [HEME] Stat COMPREHENSIVE METABOLIC PN,CMP [CHEM] Stat INR,PT,PROTHROMBIN TIME [COAG] Stat PTT,PARTIAL THROMBOPLSTIN TIME [COAG] Stat 05/26/20 13:38 Piperacillin/Tazobactam [Zosyn] 4.5 gm Sodium Chloride 0.9% [Normal Saline] 100 ml IV NOW 05/26/20 13:47 Vaccines to be Administered [RC] PER UNIT ROUTINE
[2020-05-26] MEDS ORDERED: Insulin Lispro 100 Unit/ML 3 ML KwikPen SUBCUT STA (14:07)
[2020-05-26] MEDS ORDERED: Sodium Chloride 0.9% 1,000 ML IV SCH (14:15)
[2020-05-26] MEDS ORDERED: Insulin Lispro 100 Unit/ML 3 ML KwikPen SUBCUT ONE (14:16)
[2020-05-26] MEDS ORDERED: Lidocaine 2% Viscous Solution 15 ML Cup PO ONE (14:20)
[2020-05-26] MEDS ORDERED: Ondansetron 4 MG/2 ML SDV IVPUSH ONE ×2 (14:20→14:21)
[2020-05-26] MEDS ORDERED: Ondansetron 4 MG/2 ML SDV ONE (14:26)
== END 2020-05-26 14:45 ==
LOC: FB.ED 13:10
DX: S01.551A Open bite of lip, initial encounter (principal); J45.909 Unspecified asthma, uncomplicated; E11.9 Type 2 diabetes mellitus without complications; Z79.82 Long term (current) use of aspirin; F17.210 Nicotine dependence, cigarettes, uncomplicated; Z79.84 Long term (current) use of oral hypoglycemic drugs; Z79.899 Other long term (current) drug therapy; Z20.828 Contact with and (suspected) exposure to other viral communicable diseases; Z23 Encounter for immunization; W54.0XXA Bitten by dog, initial encounter
CPT/HCPCS: 36415; 80053; 85025; 85610; 85730; 87635; 90471; 90715; 96365; 96375; 99284; J1170; J1815; J2405; J2543; J7050; U0002